=== PATIENT | female | born 1965 | race African-American/Black ===

== ENCOUNTER 2019-06-24 14:02 | Inpatient (IN) | payer OTHER ==
[~2019-06-24] VITALS: Ht 162.6 cm; Wt 92.7 kg
[~2019-06-24 14:02] MED LIST: NOCURR
[2019-06-24] MEDS ORDERED: SODIUM CHLORIDE 0.9% 1,000 ML IV ONE ×2 (14:17→15:30)
[2019-06-24] MEDS ORDERED: KETOROLAC TROMETHAMINE 30 MG/ML VIAL IVP ONE (14:30)
[2019-06-24] MEDS ORDERED: ONDANSETRON HCL 4 MG/2 ML VIAL IVP ONE ×2 (14:30→17:45)
[2019-06-24 14:55] LABS: BASOPHILS % (AUTO) 0.6 % (0.0-2.0); EOSINOPHILS % (AUTO) 0.1 % (1.0-6.0); HEMATOCRIT 37.3 % (36-46); HEMOGLOBIN 12.5 g/dL (12.0-16.0); LYMPHOCYTES % (AUTO) 11.8 % (22.0-44.0); MEAN CORPUSCULAR HEMOGLOBIN 33.2 pg (26.0-34.0); MEAN CORPUSCULAR HGB CONC 33.5 G/dL (31.0-37.0); MEAN CORPUSCULAR VOLUME 99 fL (80-100); MONOCYTES # (AUTO) 0.4 K/uL (0.1-1.0); MONOCYTES % (AUTO) 4.5 % (2.0-9.0); NEUTROPHILS # (AUTO) 6.8 K/uL (1.8-7.7); PLATELET COUNT (AUTO) 226 K/uL (150-450); RED BLOOD CELL COUNT(AUTO) 3.76 MIL/uL (4.00-5.20); RED CELL DISTRIBUTION WIDTH 18.8 % (11.5-14.5)
[2019-06-24 15:07] LABS: ANION GAP 12 mmol/L (8-16); CALCIUM, TOTAL 8.3 mg/dL (8.8-10.5); CARBON DIOXIDE 27 mmol/L (22-29); CHLORIDE 99 mmol/L (98-107); CREATININE 0.89 mg/dL (0.60-1.30); GLOMERULAR FILTR. RATE CALC > 60 mL/min (>60); GLUCOSE,RANDOM 154 mg/dL (70-110); POTASSIUM 3.4 mmol/L (3.5-5.1); SODIUM SERUM 138 mmol/L (136-145); UREA NITROGEN, BLOOD 5 mg/dL (7-18)
[2019-06-24 15:13] LABS: ALANINE AMINOTRANSFERASE 68 U/L (12-78); ALBUMIN 3.3 g/dL (3.4-5.0); ALKALINE PHOSPHATASE 142 U/L (46-116); ASPARTATE AMINOTRANSFERASE 124 U/L (15-37); BILIRUBIN,TOTAL 0.9 mg/dL (0.1-1.0); LIPASE 2235 U/L (73-393); TOTAL PROTEIN, SERUM 7.2 g/dL (6.4-8.2)
[2019-06-24] MEDS ORDERED: ONDANSETRON HCL 4 MG/2 ML VIAL IVP PRN (15:30)
[2019-06-24] MEDS ORDERED: ACETAMINOPHEN 325 MG TABLET PO PRN (15:30)
[2019-06-24] MEDS ORDERED: 0.9% SODIUM CHLORIDE 10 ML SYRINGE IVP PRN (15:30)
[2019-06-24] MEDS ORDERED: POTASSIUM CHL 10 MEQ/WATER 50 ML IV PRN (16:45)
[2019-06-24] MEDS ORDERED: MAGNESIUM HYDROXIDE SUSPENSION 30 ML UDCUP PO PRN (16:45)
[2019-06-24] MEDS ORDERED: MORPHINE SULFATE 4 MG/ML SYRINGE IVP ONE (17:45)
[2019-06-24] MEDS: PANTOPRAZOLE SODIUM 40 MG/VIAL IVP SCH (17:46)
[2019-06-24] MEDS: MORPHINE SULFATE 2 MG/ML SYRINGE IVP PRN (17:46)
[2019-06-24] MEDS: SODIUM CHLORIDE 0.9% 1,000 ML IV SCH (17:49)
[2019-06-24 18:06] LABS: APPEARANCE,URINE CLEAR (CLEAR); GLUCOSE, URINE (UA) NEGATIVE (NEGATIVE); KETONES,URINE 15 mg/dL (NEGATIVE); LEUKOCYTE ESTERASE ,URINE NEGATIVE (NEGATIVE); NITRATE,URINE NEGATIVE (NEGATIVE); OCCULT BLOOD,URINE NEGATIVE (NEGATIVE); PH,URINE 5.5 (5.0-8.0); PROTEIN,URINE POS 1+ (NEGATIVE); UROBILINOGEN,URINE 0.2 mg/dL (<=1.0)
[2019-06-24 18:16] LABS: BILIRUBIN,URINE PRELIM. POSITIVE (NEGATIVE)
[2019-06-24 18:17] LABS: AMPHET/METH SCREEN,URINE NEGATIVE (NEGATIVE); BARBITURATE SCREEN, URINE NEGATIVE (NEGATIVE); BENZODIAZEPINES SCREEN,URINE NEGATIVE (NEGATIVE); CANNABINOID SCREEN,URINE NEGATIVE (NEGATIVE); COCAINE SCREEN,URINE NEGATIVE (NEGATIVE); METHADONE SCREEN, URINE NEGATIVE (NEGATIVE); OPIATE SCREEN,URINE NEGATIVE (NEGATIVE); PHENCYCLIDINE SCREEN,URINE NEGATIVE (NEGATIVE)
[2019-06-24 18:43] LABS: BACTERIA,URINE None Seen /HPF (None Seen); RBC,URINE None Seen /HPF (0-2); SQUAMOUS EPITHELIAL CELL,UR Moderate /LPF (None Seen); WBC,URINE 0-2 /HPF (0-5)
[2019-06-24] MEDS: DOCUSATE SODIUM 100 MG CAPSULE PO SCH (21:00)
[2019-06-25] MEDS: MORPHINE SULFATE 2 MG/ML SYRINGE IVP PRN ×7 (02:07→23:19)
[2019-06-25] MEDS: SODIUM CHLORIDE 0.9% 1,000 ML IV SCH ×3 (02:45→17:37)
[2019-06-25] MEDS: PANTOPRAZOLE SODIUM 40 MG/VIAL IVP SCH (08:16)
[2019-06-25] MEDS: DOCUSATE SODIUM 100 MG CAPSULE PO SCH ×2 (08:16→20:21)
[2019-06-25] MEDS: MULTIVITAMINS WITH MINERALS, THERAPEUTIC TABLET PO SCH (10:33)
[2019-06-25 17:16] VITALS: BP 152/92
[2019-06-25] MEDS ORDERED: INFLUENZA VIRUS VACCINE QVS 2019-20 (3YR+)/PF 60 MCG/0.5 ML SYRINGE IM ONE (18:15)
[2019-06-25] MEDS: ACETAMINOPHEN 325 MG TABLET PO PRN (20:21)
[2019-06-25] MEDS: ONDANSETRON HCL 4 MG/2 ML VIAL IVP PRN (20:22)
[2019-06-25 21:09] VITALS: BP 149/93
[2019-06-26] MEDS: ACETAMINOPHEN 325 MG TABLET PO PRN (00:21)
[2019-06-26 00:40] VITALS: BP 150/97
[2019-06-26] MEDS: ONDANSETRON HCL 4 MG/2 ML VIAL IVP PRN ×3 (02:30→18:48)
[2019-06-26] MEDS: MORPHINE SULFATE 2 MG/ML SYRINGE IVP PRN ×7 (02:30→22:14)
[2019-06-26 04:37] VITALS: BP 155/95
[2019-06-26 08:01] VITALS: BP 142/86
[2019-06-26 08:14] LABS: BASOPHILS % (AUTO) 0.4 % (0.0-2.0); EOSINOPHILS % (AUTO) 0.5 % (1.0-6.0); HEMATOCRIT 33.6 % (36-46); HEMOGLOBIN 11.3 g/dL (12.0-16.0); LYMPHOCYTES % (AUTO) 15.2 % (22.0-44.0); MEAN CORPUSCULAR HEMOGLOBIN 33.8 pg (26.0-34.0); MEAN CORPUSCULAR HGB CONC 33.6 G/dL (31.0-37.0); MEAN CORPUSCULAR VOLUME 101 fL (80-100); MONOCYTES # (AUTO) 0.3 K/uL (0.1-1.0); MONOCYTES % (AUTO) 5.1 % (2.0-9.0); NEUTROPHILS % (AUTO) 78.8 % (40.0-70.0); PLATELET COUNT (AUTO) 122 K/uL (150-450); RED BLOOD CELL COUNT(AUTO) 3.34 MIL/uL (4.00-5.20); RED CELL DISTRIBUTION WIDTH 17.7 % (11.5-14.5)
[2019-06-26] MEDS: MULTIVITAMINS WITH MINERALS, THERAPEUTIC TABLET PO SCH (08:35)
[2019-06-26] MEDS: PANTOPRAZOLE SODIUM 40 MG/VIAL IVP SCH (08:35)
[2019-06-26] MEDS: DOCUSATE SODIUM 100 MG CAPSULE PO SCH ×2 (08:36→20:34)
[2019-06-26] MEDS: SODIUM CHLORIDE 0.9% 1,000 ML IV SCH ×2 (08:50→22:16)
[2019-06-26 11:31] VITALS: BP 146/96
[2019-06-26 15:28] VITALS: BP 153/94
[2019-06-26 20:20] VITALS: BP 138/88
[2019-06-26] MEDS: POTASSIUM CHLORIDE 20 MEQ ER TABLET PO PRN (20:34)
[2019-06-27 00:27] VITALS: BP 129/91
[2019-06-27] MEDS: MORPHINE SULFATE 2 MG/ML SYRINGE IVP PRN ×4 (03:19→15:39)
[2019-06-27 05:59] VITALS: BP 123/60
[2019-06-27 07:43] VITALS: BP 139/93
[2019-06-27 07:49] LABS: ANION GAP 8 mmol/L (8-16); CALCIUM, TOTAL 7.8 mg/dL (8.8-10.5); CARBON DIOXIDE 31 mmol/L (22-29); CHLORIDE 101 mmol/L (98-107); CREATININE 0.77 mg/dL (0.60-1.30); GLOMERULAR FILTR. RATE CALC > 60 mL/min (>60); GLUCOSE,RANDOM 103 mg/dL (70-110); LIPASE 487 U/L (73-393); POTASSIUM 3.1 mmol/L (3.5-5.1); SODIUM SERUM 140 mmol/L (136-145); UREA NITROGEN, BLOOD 2 mg/dL (7-18)
[2019-06-27] MEDS: PANTOPRAZOLE SODIUM 40 MG/VIAL IVP SCH (08:17)
[2019-06-27] MEDS: MULTIVITAMINS WITH MINERALS, THERAPEUTIC TABLET PO SCH (08:17)
[2019-06-27] MEDS: DOCUSATE SODIUM 100 MG CAPSULE PO SCH (08:17)
[2019-06-27] MEDS: POTASSIUM CHLORIDE 20 MEQ ER TABLET PO PRN ×2 (09:06→15:38)
[2019-06-27 12:57] VITALS: BP 130/92
[2019-06-27 16:01] VITALS: BP 122/89
== END 2019-06-27 18:58 | disposition home or self-care (01) | DRG 282 ==
LOC: EMS 14:04 → 4E 06-25 16:25
PROVIDERS: ADMIT Internal Medicine; ATTEND Internal Medicine
DX: K85.20 Alcohol induced acute pancreatitis without necrosis or infection (principal); E44.0 Moderate protein-calorie malnutrition; E87.6 Hypokalemia; F10.10 Alcohol abuse, uncomplicated; Z91.19 Patient's noncompliance with other medical treatment and regimen; Z68.35 Body mass index [BMI] 35.0-35.9, adult
CPT/HCPCS: 84132; 90686; 96374; 96375; C9113; G0378; G0480; J1885; J2270; J2405; J7030

== ENCOUNTER 2020-10-18 11:56 | Emergency (ER) | payer OTHER ==
[~2020-10-18] VITALS: Ht 162.6 cm; Wt 72.7 kg
[2020-10-18] MEDS ORDERED: DEXAMETHASONE SOD PHOS 4 MG/ML 5 ML VIAL IM ONE (13:00)
[2020-10-18 13:30] VITALS: BP 119/84
== END 2020-10-18 13:38 | disposition home or self-care (01) ==
LOC: EMS 12:03
DX: L30.9 Dermatitis, unspecified (principal); I10 Essential (primary) hypertension
CPT/HCPCS: 96372; 99283; J1100

== ENCOUNTER 2020-12-10 01:46 | Emergency (ER) | payer OTHER ==
[~2020-12-10] VITALS: Ht 162.6 cm; Wt 72.0 kg
[2020-12-10] MEDS ORDERED: FAMOTIDINE 20 MG TABLET PO ONE (04:45)
[2020-12-10 04:50] LABS: COVID AG,FIA SOURCE NASOPHARYNGEAL
[2020-12-10 05:37] VITALS: BP 129/67
== END 2020-12-10 05:43 | disposition home or self-care (01) ==
LOC: EMS 01:47
DX: L30.9 Dermatitis, unspecified (principal); I10 Essential (primary) hypertension; Z20.822 Contact with and (suspected) exposure to COVID-19
CPT/HCPCS: 99283